=== PATIENT | female | born 1960 | race Caucasian/White ===

== ENCOUNTER 2022-01-03 06:00 | Outpatient (RCR) | payer SELFPAY | END 2022-01-16 23:59 | disposition home or self-care (01) | LOC: SPT 06:00 | PROVIDERS: Family Provider Family Medicine; PCP Physician Assistant; Visit Provider Physician Assistant | DX: H81.13 Benign paroxysmal vertigo, bilateral (principal) | CPT/HCPCS: 95992; 97162 ==

== ENCOUNTER 2022-01-17 06:00 | Outpatient (RCR) | payer SELFPAY | END 2022-02-15 23:59 | disposition home or self-care (01) | LOC: SPT 06:00 | PROVIDERS: Family Provider Family Medicine; PCP Physician Assistant; Visit Provider Physician Assistant | DX: H81.13 Benign paroxysmal vertigo, bilateral (principal) | CPT/HCPCS: 95992 ==

== ENCOUNTER 2023-05-09 11:32 | Outpatient (CLI) | payer OTHER, SELFPAY ==
--- NOTE | 2023-05-09 11:35 | MM_ITS ---
WS: [id number] BILATERAL SCREENING DIGITAL TOMOSYNTHESIS MAMMOGRAM WITH CAD HISTORY: SCREENING COMPARISON: 01/03/2018, 07/05/2010 Bilateral CC and MLO views with tomosynthesis and synthetic mammography submitted. Computer aided det ection analyzed. Breast composition: The breasts are heterogeneously dense, which may obscure small masses. No suspici ous masses, microcalcifications or architectural distortion. Benign lymph node in the lateral LEFT br east near 9:00. Benign bilateral breast arterial calcifications. IMPRESSION: MM/[place] [id number] BI-RADS: 2-Benign FOLLOW UP: 1 Year Follow-up
--- NOTE | 2023-05-09 11:50 | XR_ITS ---
WS: [id number] SCREENING DEXA SCAN [facility] CLINICAL INFORMATION: POSTMENOPAUSAL COMPARISON: None. FINDINGS: The L1-L4 bone mineral density measures 0.991 g/cm2. This corresponds to a T score score of -1.6 and Z score of -0.4. Left femoral neck bone mineral density measures 0.824 g/cm2. This corresponds to a T score of -1.5 an d Z score of -0.6. Right femoral neck bone mineral density measures 0.805 g/cm2. This corresponds to a T score -1.6of an d Z score of -0.7. Mean femoral neck bone mineral density measures 0.815 g/cm2. This corresponds to a T score of -1.5 an d Z score of -0.6. IMPRESSION: Osteopenia lumbar spine. Osteopenia femoral necks. Patient's FRAX calculated 10 year probability for major osteoporotic fracture is 17.1% and osteoporot ic hip fracture is 2.5%.
== END 2023-05-09 11:33 | disposition home or self-care (01) ==
LOC: RAD 11:33
PROVIDERS: PCP Physician Assistant; Visit Provider Physician Assistant
DX: Z12.31 Encounter for screening mammogram for malignant neoplasm of breast (principal); Z13.820 Encounter for screening for osteoporosis; Z78.0 Asymptomatic menopausal state; R92.333 Mammographic heterogeneous density, bilateral breasts; M85.852 Other specified disorders of bone density and structure, left thigh; M85.851 Other specified disorders of bone density and structure, right thigh; M85.88 Other specified disorders of bone density and structure, other site
CPT/HCPCS: 77063; 77067; 77080

== ENCOUNTER 2023-08-20 04:11 | Emergency (ER) | payer MEDICARE, SELFPAY ==
[2023-08-20 04:13] VITALS: BP 150/65; PULSE 95; RESP 16; TEMP 37.2; O2SAT 97; BMI 26.6
--- NOTE | 2023-08-20 04:40 | XRR_ITS ---
PROCEDURE INFORMATION: Exam: XR Left Shoulder Exam date and time: 08/20/2023 4:41 AM Age: 63 years old Clinical indication: Left; Patient HX: C/O of worsening shoulder pain over last several days since picking up grandchild. ; Additional info: L shoulder pain after lifting TECHNIQUE: Imaging protocol: Radiologic exam of the left shoulder. Views: 2 or more views. COMPARISON: CR XR chest 1V [id number] 09/16/2018 10:47 AM FINDINGS: Bones/joints: There are mild degenerative changes involving the acromioclavicular and glenohumeral joints. There are no fractures or subluxations. Lungs: The included portion of the left lung shows mild atelectasis in the left lung base but is otherwise clear. There is calcification of the tracheobronchial tree Soft tissues: There is soft tissue calcification adjacent to the superolateral humeral head. This could be an old chip fracture or may reflect calcific tendinitis or calcific bursitis. XR/XR shoulder LT min 2V* [id number] IMPRESSION: 1. Degenerative changes 2. Negative for acute fracture or subluxation 3. Soft tissue calcification adjacent to humeral head, see above
[2023-08-20] MEDS: oxyCODONE-APAP 5-325 mg Tablet 2 TAB PO (04:51)
[2023-08-20] MEDS: ketorolac 30 mg/mL INJ IM (04:54)
--- NOTE | 2023-08-20 06:02 | ED_ITS ---
HPI - Extremity Problem General: Chief complaint: Extremity Injury, Upper Stated complaint: Left Shoulder Pain Time Seen by Provider: 08/20/23 04:23 History of Present Illness: 63 year old female who lifted a grandson five days ago. she presents this morning with worsening left shoulder pain. Pain is anterior and lateral and radiates down to her mid arm. No fever. No rash. No other trauma. Associated symptoms: Deny chest pain or fever(s) Review of Systems Const: Denies: fever(s) ENMT: Denies: throat pain Card: Denies: chest pain Resp: Denies: dyspnea, productive cough or non-productive cough GI: Denies: vomiting Musc: Denies: neck pain PFSH ED PFSH: Medical History Anxiety Dermatitis herpetiformis SVT (supraventricular tachycardia) Social History Smoking and tobacco/nicotine status: never used tobacco/nicotine Alcohol intake: never Physical Exam Const: COMMON NORMALS: no acute distress GENERAL APPEARANCE: cooperative; not ill appearing HENMT: COMMON NORMALS: normocephalic, atraumatic and Normal external nose present HEAD & SCALP: normocephalic and atraumatic FACE & SINUS: normal facial exam NOSE: Normal external nose present Resp: COMMON NORMALS: normal respiratory effort and No use of accessory muscles Cardio: COMMON NORMALS: regular rate and regular rhythm RATE: regular rate RHYTHM: regular rhythm Extremity: NARRATIVE EXTREMITY EXAM: Examination of the left shoulder reveals tenderness anteriorly. There is also tenderness over rotator cuff footprint. The patient can actively move her arm, but with pain. All resistance testing causes pain. Neuro: JHONATHAN COMA SCALE: document GCS findings Jhonathan coma scale eye opening: Spontaneous Jhonathan coma scale verbal response: Orientated Edelstein coma scale motor response: Obey commands Edelstein coma scale total score: 15 Course Vital Signs: Vital signs: Vital Signs Temperature 98.9 F 08/20/23 06:25 Pulse Rate 78 08/20/23 06:25 Respiratory Rate 16 08/20/23 06:25 Blood Pressure 104/64 08/20/23 06:25 Pulse Oximetry 97 08/20/23 06:25 Oxygen Delivery Me thod Room Air 08/20/23 04:13 MDM - Extremity (Nontraumatic) Medical Decision Making X-ray shows changes of calcific tendonitis. Mild osteoarthritic change. She will be placed on a tapering dose of steroid. Pain medication for symptomatic treatment. close that patient follow up. Lab Data Radiology Impressions Shoulder X-Ray 08/20/23 04:40 IMPRESSION: 1. Degenerative changes 2. Negative for acute fracture or subluxation 3. Soft tissue calcification adjacent to humeral head, see above All radiology interpretation(s) finalized by discharge Discharge Plan Discharge Patient Disposition: Home Clinical Impression: Calcific tendinitis of left shoulder Condition: Stable Prescriptions: New hydrocodone-acetaminophen 5-325 mg tablet 1 tab PO Q8H PRN (Reason: pain) Qty: 7 0RF Medrol (Marcio) 4 mg tablets,dose pack See Rx Instructions .ROUTE .COMPLEX Qty: 21 0RF Rx Instructions: orally per package directions Discharge Orders: Discharge ED (Routine); Ordered 08/20/23 Ordered By: Gregorio Calabrese Referrals: Earline Escalona PA [Primary Care Provider] - 1-3 days Patient Instructions: Calcific Tendinitis (ED), Opioid Safety, Pain Management Activity Restrictions/Additional Instructions: Continue to move your shoulder even though it hurts, but as you do not want it to get any more stiff. Medication as directed. Take steroids for the tendinitis, and pain medication as needed. Ice may help as well. See your doctor this week. Return for fever, worsening pain, other concerning symptoms. Coding Level of Care Code ED Assistant Research Scientist for Elsy Fournier
[2023-08-20 06:18] VITALS: BP 104/64; PULSE 78; RESP 16; O2SAT 97
[2023-08-20] MEDS: ondansetron 4 MG Tablet PO (06:18)
[2023-08-20 06:25] VITALS: BP 104/64; PULSE 78; RESP 16; TEMP 37.2; O2SAT 97
== END 2023-08-20 06:18 | disposition home or self-care (01) ==
PROVIDERS: Emergency Provider Emergency Medicine; PCP Physician Assistant
DX: M75.32 Calcific tendinitis of left shoulder (principal)
CPT/HCPCS: 73030; 96372; 99284; J1885; Q0162

== ENCOUNTER 2023-09-12 10:38 | Outpatient (RCR) | payer MEDICARE, SELFPAY | END 2023-09-16 23:59 | disposition home or self-care (01) | LOC: SPT 10:38 | PROVIDERS: PCP Physician Assistant; Visit Provider Physician Assistant | DX: M25.512 Pain in left shoulder (principal) | CPT/HCPCS: 97161 ==

== ENCOUNTER 2023-09-24 15:20 | Outpatient (RCR) | payer MEDICARE, SELFPAY | END 2023-10-17 23:59 | disposition home or self-care (01) | LOC: SPT 15:20 | PROVIDERS: PCP Physician Assistant; Visit Provider Physician Assistant | DX: M25.512 Pain in left shoulder (principal) | CPT/HCPCS: 97110 ==

== ENCOUNTER 2023-10-18 06:00 | Outpatient (RCR) | payer MEDICARE, SELFPAY | END 2023-10-30 23:59 | disposition home or self-care (01) | LOC: SPT 06:00 | PROVIDERS: PCP Physician Assistant; Visit Provider Physician Assistant | DX: M25.512 Pain in left shoulder (principal) | CPT/HCPCS: 97110 ==

== ENCOUNTER 2024-09-08 10:49 | Outpatient (CLI) | payer MEDICARE, SELFPAY ==
--- NOTE | 2024-09-08 10:54 | MM_ITS ---
WS: [id number] BILATERAL SCREENING DIGITAL TOMOSYNTHESIS MAMMOGRAM WITH CAD HISTORY: SCREENING COMPARISON: 05/09/2023, 01/03/2018 Bilateral CC and MLO views with tomosynthesis and synthetic mammography submitted. Computer aided detection analyzed. Breast composition: The breasts are heterogeneously dense, which may obscure small masses. No suspicious masses, microcalcifications or architectural distortion. Scattered asymmetries within each breast are stable. Benign bilateral arterial calcifications. MM/MM scr tomosynthesis [id number] IMPRESSION: BI-RADS: 2 - Benign FOLLOW UP: 1 Year Follow-up
== END 2024-09-08 10:50 | disposition home or self-care (01) ==
PROVIDERS: PCP Physician Assistant; Visit Provider Physician Assistant
DX: Z12.31 Encounter for screening mammogram for malignant neoplasm of breast (principal); R92.323 Mammographic fibroglandular density, bilateral breasts; R92.1 Mammographic calcification found on diagnostic imaging of breast; N64.89 Other specified disorders of breast
CPT/HCPCS: 77063; 77067